=== PATIENT | female | born 1985 | race Hispanic/Latino ===

== ENCOUNTER 2017-11-12 23:38 | Emergency (ER) | payer MEDICAID ==
[2017-11-13 00:17] LABS: APPEARANCE,URINE Clear (CLEAR); BILIRUBIN,URINE Negative (NEGATIVE); COLOR,URINE Yellow (YELLOW); GLUCOSE, URINE (UA) Negative (NEGATIVE); KETONES,URINE Negative (NEGATIVE); LEUKOCYTE ESTERASE ,URINE Negative (NEGATIVE); NITRATE,URINE Negative (NEGATIVE); OCCULT BLOOD,URINE Negative (NEGATIVE); PROTEIN,URINE Negative (NEGATIVE); UROBILINOGEN,URINE 0.2 mg/dL (0.2-1.0)
[2017-11-13] MEDS ORDERED: ACETAMINOPHEN 325 MG TAB ONE (02:26)
== END 2017-11-13 03:50 | disposition home or self-care (01) ==
LOC: EDH 23:38
DX: O99.611 Diseases of the digestive system complicating pregnancy, first trimester (principal); K29.70 Gastritis, unspecified, without bleeding; Z3A.01 Less than 8 weeks gestation of pregnancy
CPT/HCPCS: 36415; 76801; 81003; 81025; 84702

== ENCOUNTER 2017-11-14 11:27 | Emergency (ER) | payer MEDICAID ==
[2017-11-14 12:41] LABS: BASOPHILS % (AUTO) 0.3 % (0.0-5.0); EOSINOPHILS % (AUTO) 0.8 % (0.0-8.0); HEMATOCRIT 35.3 % (36-48); LYMPHOCYTES % (AUTO) 19.2 % (21.0-51.0); MEAN CORPUSCULAR HGB CONC 33.9 g/dL (32.0-36.0); MEAN CORPUSCULAR VOLUME 88.4 fL (79-99); MONOCYTES % (AUTO) 8.2 % (3.0-13.0); NEUTROPHILS % (AUTO) 71.5 % (40.0-77.0); PLATELET COUNT (AUTO) 318 K/uL (130-400); RED CELL DISTRIBUTION WIDTH 13.6 % (11.0-15.5); WHITE BLOOD COUNT (AUTO) 5.1 K/uL (4.8-10.8)
== END 2017-11-14 13:38 | disposition home or self-care (01) ==
LOC: EDH 11:27
DX: O20.0 Threatened abortion (principal); Z3A.01 Less than 8 weeks gestation of pregnancy
CPT/HCPCS: 36415; 84702; 85025; 86900; 86901

== ENCOUNTER 2017-11-15 15:16 | Emergency (ER) | payer MEDICAID ==
[2017-11-15 16:00] LABS: HEMATOCRIT 34.8 % (36-48)
[2017-11-15] MEDS ORDERED: HYDROCODONE/ACETAMINOPHEN 10/325 MG TAB ONE (16:09)
== END 2017-11-15 17:19 | disposition home or self-care (01) ==
LOC: EDH 15:16
DX: O20.0 Threatened abortion (principal); Z3A.01 Less than 8 weeks gestation of pregnancy
CPT/HCPCS: 36415; 76801; 76817; 85014; 85018

== ENCOUNTER 2023-03-12 12:55 | Emergency (ER) | payer MEDICAID ==
[~2023-03-12] VITALS: Ht 165.1 cm; Wt 61.7 kg
[2023-03-12] MEDS ORDERED: ONDANSETRON 4MG INJ IVP ONE (14:00)
[2023-03-12] MEDS ORDERED: 0.9%NACL 1000ML 1,000 ML IV ONE (14:00)
[2023-03-12] MEDS ORDERED: LACTATED RINGERS 1000ML 1,000 ML IV ONE (14:00)
[2023-03-12 15:23] LABS: BASOPHILS % (AUTO) 0.1 % (0.0-5.0); EOSINOPHILS % (AUTO) 0.2 % (0.0-8.0); HEMATOCRIT 36.5 % (36-48); LYMPHOCYTES % (AUTO) 9.9 % (21.0-51.0); MEAN CORPUSCULAR HEMOGLOBIN 28.6 pg (27.0-33.0); MEAN CORPUSCULAR HGB CONC 33.4 g/dL (32.0-36.0); MEAN CORPUSCULAR VOLUME 85.7 fL (79-99); MONOCYTES % (AUTO) 4.3 % (3.0-13.0); NEUTROPHILS % (AUTO) 85.1 % (40.0-77.0); PLATELET COUNT (AUTO) 395 K/uL (130-400); RED BLOOD CELL COUNT(AUTO) 4.26 MIL/uL (4.00-5.50); RED CELL DISTRIBUTION WIDTH 16.3 % (11.0-15.5); WHITE BLOOD COUNT (AUTO) 10.3 K/uL (4.8-10.8)
[2023-03-12 15:38] LABS: CREATININE 0.6 mg/dL (0.5-1.5); POTASSIUM 3.7 mmol/L (3.5-5.1)
[2023-03-12 15:41] LABS: ALBUMIN 4.5 g/dL (3.5-5.0); TOTAL PROTEIN, SERUM 8.8 g/dL (6.0-8.3)
[2023-03-12 15:58] LABS: APPEARANCE,URINE CLOUDY (CLEAR); BILIRUBIN,URINE NEGATIVE (NEGATIVE); COLOR,URINE LIGHT-YELLOW (YELLOW); GLUCOSE, URINE (UA) NEGATIVE (NEGATIVE); KETONES,URINE 150 mg/dL (NEGATIVE); LEUKOCYTE ESTERASE ,URINE NEGATIVE Leu/uL (NEGATIVE); NITRATE,URINE NEGATIVE (NEGATIVE); OCCULT BLOOD,URINE SMALL (NEGATIVE); PROTEIN,URINE 200 mg/dL (NEGATIVE); UROBILINOGEN,URINE 0.2 mg/dL (0.2-1.0)
[2023-03-12 16:00] LABS: HCG,QUALITATIVE URINE NEGATIVE (NEGATIVE)
[2023-03-12 16:06] LABS: BACTERIA,URINE RARE /HPF (None Seen); MUCUS,URINE RARE LPF (None Seen); RBC,URINE 0-1 /HPF (0-1); SQUAMOUS EPITHELIAL CELL,UR MANY /HPF (0-2); WBC,URINE 0-1 /HPF (0-1)
[2023-03-12] MEDS ORDERED: DICY20TA2 PO (17:40)
[2023-03-12] MEDS ORDERED: ONDA4TAB10 PO (17:40)
[2023-03-12] MEDS ORDERED: PROM6.2514 PO (17:50)
[2023-03-12] MEDS ORDERED: PROMETHAZINE HCL 25 MG/ML 1ML AMPULE IM ONE ×2 (18:13→18:30)
[2023-03-12 18:28] VITALS: BP 122/68
[2023-03-13] MEDS ORDERED: METO10TA3 PO (02:15)
[2023-03-13] MEDS ORDERED: SERT-440 PO (02:15)
[2023-03-13] MEDS ORDERED: LORA10TA7 PO (02:15)
[2023-03-13] MEDS ORDERED: PROM12.513 PO (06:45)
== END 2023-03-12 18:42 | disposition home or self-care (01) ==
LOC: EDH 12:55
DX: E86.0 Dehydration (principal); K52.9 Noninfective gastroenteritis and colitis, unspecified
CPT/HCPCS: 99284; 96374; 87635; 86677; 80053; 85025; 87880; 86308; 87804 ×2; 81001; 81025; 36415; 96372; C9803; J7120; J2550; J2405

== ENCOUNTER 2023-07-21 22:49 | Emergency (ER) | payer MEDICAID ==
[~2023-07-21] VITALS: Ht 162.6 cm; Wt 58.5 kg
[~2023-07-21 22:49] MED LIST: DICY20TA2 PO; LORA10TA7 PO; METO10TA3 PO; ONDA4TAB10 PO; PROM12.513 PO; PROM6.2514 PO; SERT-440 PO
[2023-07-21] MEDS ORDERED: IBUPROFEN 600 MG TABLET PO ONE (23:30)
[2023-07-21] MEDS ORDERED: HYDROCODONE/ACETAMINOPHEN 5/325 MG TAB PO ONE (23:30)
[2023-07-21] MEDS ORDERED: ONDANSETRON ODT 4MG TAB SL ONE (23:30)
[2023-07-22 00:44] VITALS: BP 110/78; PULSE 82; RESP 16; O2SAT 97
== END 2023-07-22 00:46 ==
LOC: EEVIPCON 22:49 → EDH 22:49
DX: F10.129 Alcohol abuse with intoxication, unspecified (principal); R51.9 Headache, unspecified
CPT/HCPCS: 36415; 84703